=== PATIENT | male | born 2005 | race Two or more races ===

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

== ENCOUNTER 2025-01-19 08:39 | Outpatient (CLI) | payer OTHER, SELFPAY ==
--- OUTSIDE RECORDS SUMMARY | 2025-01-19 08:42 | XMS_ITS | Clinical Summary ---
Author Organization [facility] Address [address] [place] [address] Care Team Providers Care Circuit Board Repair Technician Name Role Phone Unavailable Primary Care Provider Unavailabl e Social History Tobacco Use Types Packs/Day Years Used Date Smoking Tobacco: Never Assessed Sex and Gender Information Value Date Recorded Sex Assigned at Not on file Legal Sex Male 3:14 PM CDT Gender Identity Not on file Sexual Orientation Not on file Plan of Treatment Health Maintenance Due Date Last Done Comments Hepatitis C Virus (HCV) Screening 2004 Human Papillomavirus (HPV) Immunization (2 - Male 3-dose series) 03/12/2020 02/13/2020 Meningococcal B Immunization (1 of 2 - Standard) 2020 Influenza Immunization (#1) 2024 05/07/2016 SARS-COV-2 Immunization ( - season) 2024 Respiratory Syncytial Virus (RSV) Immunization (Adult) (1 - 1-dose 75+ series) 2079 Hepatitis B Immunization Completed 006, 2004, 2004 Pneumococcal Immunization Combined Aged Out 05/18/2006, 04/21/2005, 03/15/2005, Additional history exists No longer eligible based on patient's age to complete this topic Hepatitis A Immunization Discontinued 04/11/2008, 01/07 Measles Mumps Rubella (MMR) Immunization Discontinued 04/15/2009, 05/18/2006 Polio (IPV) Immunization Discontinued 009, 05/18/2006, 2004, Additional history exists Varicella Immunization Discontinued 04/15/2009, 2005 DTaP/Tdap/Td Immunization Discontinued 2015, 04/15/2009, 05/18/2006, Additional history exists Meningococcal Immunization (ACWY) Aged Out 05/07/2016 No longer eligible based on patient's age to complete this topic TdaP Immunization Completed 05/07/2016 Rotavirus Immunization Aged Out No lo nger eligible based on patient's age to complete this topic
--- OUTSIDE RECORDS SUMMARY | 2025-01-19 08:42 | XMS_ITS | Clinical Summary ---
Author Organization [facility] Address [address] [place] [id number] Care Team Providers Care Marketing Finance Specialist Name Role Phone No, Physician Primary Care Provider [phone] Allergies No known active allergies Medications ibuprofen (ADVIL,MOTRIN) 400 mg tablet Take 1 tablet (400 mg total) by mouth every 6 (six) hours as needed for pain Active aspirin 81 mg enteric coated tablet Take 1 tablet (81 mg total) by mouth 2 (two) times a day for 14 days 28 tablet 12/05/2023 Active oxyCODONE-acetam inophen (PERCOCET) 7.5-325 mg per tabletIndication s:Pain Take 1 tablet by mouth every 6 (six) hours as needed for pain 20 tablet 12/05/2023 Active Active Problems Problem Noted Date Diagnosed Date Acute medial meniscus tear of left knee 11/24/19 24 Social History Tobacco Use Types Packs/Day Years Used Date Smoking Tobacco: Never Smokeless Tobacco: Never Tobacco Cessation:Counseling Given: Not Answered AUDIT-C Answer Date Recorded Q1: How often do you have a drink containing alcohol? Never 12/05/2023 Q2: How many drinks containi ng alcohol do you have on a typical day when you are drinking? Patient does not drink Q3: How often do you have si x or more drinks on one occasion? Never 12/05/2023 Personal Safety Answer Date Recorded Have you ever been in or are you currently in a harmful physical or emotional relationship or is someone making you feel afraid or unsafe? 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 Gender Identity Not on file Sexual Orientation Not on file Obstetrics History Last Filed Vital Signs Vital Sign Reading Time Taken Comments Blood Pressure 129/81 12/05/2023 11:55 AM CDT Pulse 64 12/05/2023 12:10 PM CDT Temperature 36.5 C (97.7 F) 12/05/2023 12:10 PM CDT Respiratory Rate 15 12/05/2023 12:10 PM CDT Oxygen Saturation 97% 12/05/2023 12:10 PM CDT Inhaled Oxygen Concentration - - Weight 71.4 kg (157 lb 4.8 oz) 12/05/2023 9:19 A M CDT Height 193 cm (6' 4) 12/05/2023 9:19 AM CDT Body Mass Index 19.15 12/05/2023 9:19 AM CDT Plan of Treatment Health Maintenance Due Date Last Done Comments Depression Screening 2004 Hepatitis C Screening 2004 HPV Vaccines (2 - Male 3-dos e series) 03/12/2020 02/13/2020 Meningococcal B Vaccine (1 o f 2 - Standard) 2020 Regular Well Visit/Exam 18-64 2022 Influenza Vaccine (Season Ended) 2025 05/07/20 16, 05/28/2010 DTaP/Tdap/Td Vaccine (7 - Td or Tdap) 05/07/2026 05/07/2016, 04/15/2009, 05/18/2006, Additional history exists Hepatitis B Screening Completed 05/18/2006 , 2004, 2004 Pneumococcal vaccine <65 Completed 006, 04/21/2005, 03/15/2005, Additional history exists Varicella Vaccines Completed 04/15/2009, 05/18/2006 Meningococcal Vaccine Completed 05/23/2023, 016 Insurance [facility] [employer] [place] [address] IDPA Care Teams Marketing Finance Specialist Relationship Specialty Start Date End Date No, Physician PCP - General 11/08/23
--- OUTSIDE RECORDS SUMMARY | 2025-01-19 08:42 | XMS_ITS | Referral Summary ---
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
== END 2025-01-19 08:40 | disposition home or self-care (01) ==
DX: M25.511 Pain in right shoulder (principal)
CPT/HCPCS: 99199